=== PATIENT | female | born 1940 | race Hispanic/Latino ===

== ENCOUNTER 2017-02-24 03:23 | Emergency (ER) | payer MEDICARE ==
[2017-02-24 04:09] LABS: Basophils % (Auto) 1.3 % (0.0-1.8); Eosinophils % (Auto) 3.5 % (0.0-4.3); Hematocrit 36.7 % (30.3-42.9); Hemoglobin 12.2 gm/dl (10.1-14.3); Mean Corpuscular HGB Conc 33 % (30-34); Mean Corpuscular Hemoglobin 28 pg (28-32); Mean Corpuscular Volume 85 fl (79-97); Platelet Count 186 K/mm3 (140-440); Red Blood Count 4.32 M/mm3 (3.65-5.03); Red Cell Distribution Width 14.2 % (13.2-15.2); White Blood Count 5.5 K/mm3 (4.5-11.0)
[2017-02-24 04:28] LABS: Anion Gap 18 mmol/L; Blood Urea Nitrogen 10 mg/dL (7-17); Carbon Dioxide 25 mmol/L (22-30); Chloride 99.6 mmol/L (98-107); Glucose 108 mg/dL (65-100); Sodium 139 mmol/L (137-145)
--- NOTE | 2017-02-24 07:04 | Emergency Department Report ---
ED Dizziness HPI - General Chief Complaint: Dizziness Stated Complaint: DIZZINESS Time Seen by Provider: 02/24/17 06:53 Source: patient, family Mode of arrival: Wheelchair Limitations: No Limitations - History of Present Illness Initial Comments: 76-year-old female presents to the emergency department complaining of dizziness and near syncope. Patient states symptoms began earlier this morning. She has not lost consciousness. Patient states that she restarted her risperidone and citalopram yesterday. At this time, the patient states she feels better. There are no other complaints. MD Complaint: dizziness, near syncope -: Gradual, During the night Timing: gradual onset Description: lightheadedness, near-syncope History of Same: No History of Trauma: No Severity: moderate Improves With: rest Worsens With: nothing Associated Symptoms: denies other symptoms - Related Data Home Medications Medication Instructions Recorded Confirmed Last Taken Citalopram [celeXA] 20 mg PO QDAY 02/24/17 02/24/17 Unknown risperiDONE [RisperDAL] 1 mg PO QDAY 02/24/17 02/24/17 02/23/17 1mg Allergies Allergy/AdvReac Type Severity Reaction Status Date / Time No Known Allergies Allergy Unverified 02/24/17 03:46 ED Review of Systems ROS: Stated complaint: DIZZINESS Other details as noted in HPI Comment: All other systems reviewed and negative Cardiovascular: syncope (lightheadedness, no loss of consciousness) ED Past Medical Hx - Past Medical History Previous Medical History?: Yes Hx Psychiatric Treatment: Yes (paranoid schizophrenia) - Surgical History Past Surgical History?: No - Family History Family history: no significant - Social History Smoking Status: Never Smoker Substance Use Type: None - Medications Home Medications: Home Medications Medication Instructions Recorded Confirmed Last Taken Type Citalopram [celeXA] 20 mg PO QDAY 02/24/17 02/24/17 Unknown History risperiDONE [RisperDAL] 1 mg PO QDAY 02/24/17 02/24/17 02/23/17 History 1mg ED Physical Exam - General Limitations: No Limitations General appearance: alert, in no apparent distress - Head Head exam: Present: atraumatic, normocephalic - Eye Eye exam: Present: normal appearance, PERRL, EOMI - ENT ENT exam: Present: normal exam, normal orophraynx, mucous membranes moist - Neck Neck exam: Present: normal inspection, full ROM. Absent: tenderness - Respiratory Respiratory exam: Present: normal lung sounds bilaterally. Absent: respiratory distress - Cardiovascular Cardiovascular Exam: Present: regular rate, normal rhythm, normal heart sounds - GI/Abdominal GI/Abdominal exam: Present: soft, normal bowel sounds. Absent: distended, tenderness - Extremities Exam Extremities exam: Present: normal inspection, full ROM. Absent: tenderness - Back Exam Back exam: Present: normal inspection, full ROM. Absent: tenderness - Neurological Exam Neurological exam: Present: alert, oriented X3. Absent: motor sensory deficit - Skin Skin exam: Present: warm, dry, intact ED Course Vital Signs 02/24/17 02/24/17 02/24/17 03:35 04:00 05:00 Temperature 97.5 F L Pulse Rate 54 L 60 47 L Respiratory 18 18 18 Rate Blood Pressure 148/65 142/57 144/61 O2 Sat by Pulse 96 93 94 Oximetry 02/24/17 02/24/17 02/24/17 06:00 07:00 08:00 Temperature Pulse Rate 56 L 56 L 52 L Respiratory 18 20 14 Rate Blood Pressure 135/52 141/62 150/65 O2 Sat by Pulse 94 96 95 Oximetry 02/24/17 09:08 Temperature Pulse Rate 75 Respiratory 16 Rate Blood Pressure 138/63 O2 Sat by Pulse 95 Oximetry ED Medical Decision Making - Lab Data Result diagrams: 02/24/17 Unknown 02/24/17 Unknown - EKG Data -: EKG Interpreted by Ks EKG shows normal: sinus rhythm, axis, intervals, QRS complexes Rate: bradycardia - EKG Data When compared to previous EKG there are: no significant change Interpretation: unchanged when compared t (10/11/2012), nonspecific ST-T wave naomy - Medical Decision Making Laboratory results reviewed and discussed with the patient and family. Patient has remained asymptomatic in the emergency department. Patient is ambulated without difficulty. It is likely that her symptoms are secondary to restarting her medication. Patient will be discharged home at this time. - Differential Diagnosis medication reaction, electrolyte abnormality, occult infection Critical care attestation.: If time is entered above; I have spent that time in minutes in the direct care of this critically ill patient, excluding procedure time. ED Disposition Clinical Impression: Medication reaction, Dizziness Disposition: DISCHARGED TO HOME OR SELFCARE Is pt being admited?: No Condition: Stable Instructions: Citalopram (By mouth), Risperidone (By mouth) Referrals: PRIMARY CARE, [Primary Care Provider] - 3-5 Days Time of Disposition: 10:07
[2017-02-24 09:23] LABS: Bilirubin,Urine NEG (Negative); Blood,Urine NEG (Negative); Ketones,Urine NEG (Negative); Leukocyte Esterase,Urine NEG (Negative); Mucus,Urine FEW /HPF; Nitrite,Urine NEG (Negative); Protein,Urine <15 mg/dL mg/dL (Negative); Urobilinogen,Urine < 2.0 mg/dL (<2.0)
[2017-02-24 11:10] VITALS: BP 136/54
== END 2017-02-24 10:50 | disposition home or self-care (01) ==
LOC: ED 03:23
DX: T43.225A Adverse effect of selective serotonin reuptake inhibitors, initial encounter (principal); Y92.9 Unspecified place or not applicable; F20.9 Schizophrenia, unspecified
CPT/HCPCS: 36415; 80048; 81001; 83735; 84484; 85025; 93005; 93010; 99284

== ENCOUNTER 2019-10-01 15:34 | Inpatient (IN) | payer MEDICARE ==
--- NOTE | 2019-10-01 16:46 | Event Note ---
ED Screening Note Date of service: 10/01/19 Time: 16:34 ED Screening Note: 79 y o F presents for slurred speech x 1 month brought in by Daughter, kortney went to ENT and was told to bring her to ED for eval This initial assessment/diagnostic orders/clinical plan/treatment(s) is/are subject to change based on patients health status, clinical progression and re- assessment by fellow clinical providers in the ED. Further treatment and workup at subsequent clinical providers discretion. Patient/guardian urged not to elope from the ED as their condition may be serious if not clinically assessed and managed. Initial orders include: labs, ua, CT scan main side ecal
[2019-10-01 18:05] LABS: Hematocrit 49.3 % (30.3-42.9); Hemoglobin 15.9 gm/dl (10.1-14.3); Mean Corpuscular HGB Conc 32 % (30-34); Mean Corpuscular Volume 88 fl (79-97); Platelet Count 285 K/mm3 (140-440); Red Blood Count 5.57 M/mm3 (3.65-5.03); Red Cell Distribution Width 14.5 % (13.2-15.2)
[2019-10-01 18:21] LABS: Creatine Kinase MB 2.2 ng/mL (0.0-4.0)
[2019-10-01 18:23] LABS: INR 1.4 (0.87-1.13)
[2019-10-01 18:27] LABS: Thrombin Time 23.3 Sec. (15.1-19.6)
[2019-10-01 18:41] LABS: Partial Thromboplastin Time 67.2 Sec. (24.2-36.6)
--- NOTE | 2019-10-01 18:42 | Cat Scan Report ---
CT head/brain wo con INDICATION / CLINICAL INFORMATION: 79 years Female; Stroke symptoms. TECHNIQUE: Routine CT head without contrast. All CT scans at this location are performed using CT dos e reduction for ALARA by means of automated exposure control. COMPARISON: None. FINDINGS: BRAIN / INTRACRANIAL CONTENTS: There is moderate to cerebral white matter disease most consistent wit h microvascular angiopathy. There is mild cerebral atrophy with associated mild prominence of the mo tricular system. The motion and positioning degrade the image quality. However, there is no clear CT evidence of acute intracranial hemorrhage or significant mass effect. There is advanced cerebral atrophy, most notably involving temporal lobes including the hippocampi. ORBITS: No significant abnormality of visualized orbits. SINUSES / MASTOIDS: No significant abnormality the visualized paranasal sinuses or mastoid air cells. CRANIOCERVICAL JUNCTION: No significant abnormality. ADDITIONAL FINDINGS: None. IMPRESSION: 1. 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 Signer Name: Damien Scott MD Signed: 10/01/2019 6:37 PM Workstation Name: [id number]
--- NOTE | 2019-10-01 19:51 | Emergency Department Report ---
ED General Adult HPI - General Chief complaint: Neuro Symptoms/Deficit Stated complaint: SLURRED SPEECH Time Seen by Provider: 10/01/19 19:38 Source: patient, family, RN notes reviewed Mode of arrival: Wheelchair Limitations: Physical Limitation, Other (patient is a poor historian. History obtained from patient's daughter) - History of Present Illness Initial comments: This is a 79-year-old female. This patient is not known to this provider previously. Her primary care doctor is Dr. Dinora Ocasio History mostly obtained from patient's daughter. The patient for 1 month has been having difficulty walking, there is a reported gait and balance, she reportedly has a history of paranoid schizophrenia and is deaf, and has been having difficulty speaking and swallowing over the past month. Family initially thought the patient had a cold/upper respiratory tract infection. They were mistakenly referred to an ENT physician, who evaluated the patient, who then sent the patient here to the emergency room. The patient's daughter states that they were referred to the aforementioned ENT physician "by accident." The patient indicates that she is not having any physical pain. Symptoms are intermittent over the past month, reportedly painless, do not radiate anywhere, and as per the daughter, do not have exacerbating or relieving factors. -: week(s) Consistency: intermittent Improves with: none Worsens with: none - Related Data Home Medications Medication Instructions Recorded Confirmed Last Taken Citalopram [celeXA] 20 mg PO QDAY 02/24/17 02/24/17 Unknown risperiDONE [RisperDAL] 1 mg PO QDAY 02/24/17 02/24/17 02/23/17 1 mg Allergies Allergy/AdvReac Type Severity Reaction Status Date / Time No Known Allergies Allergy Verified 10/01/19 15:43 ED Review of Systems ROS: Stated complaint: SLURRED SPEECH Other details as noted in HPI Constitutional: denies: fever Eyes: denies: eye discharge ENT: denies: congestion Respiratory: denies: wheezing Cardiovascular: denies: syncope Gastrointestinal: other (dysphasia). denies: nausea, vomiting Genitourinary: denies: dysuria Musculoskeletal: arthralgia (chronic) Skin: lesions (scratching lesions on back) Neurological: abnormal gait, other ED Past Medical Hx - Past Medical History Previous Medical History?: Yes Hx Psychiatric Treatment: Yes (paranoid schizophrenia) Additional medical history: DEAF - Surgical History Past Surgical History?: Yes Additional Surgical History: Hysterectomy - Social History Smoking Status: Never Smoker Substance Use Type: None - Medications Home Medications: Home Medications Medication Instructions Recorded Confirmed Last Taken Type Citalopram [celeXA] 20 mg PO QDAY 02/24/17 02/24/17 Unknown History risperiDONE [RisperDAL] 1 mg PO QDAY 02/24/17 02/24/17 02/23/17 History 1 mg ED Physical Exam - General Limitations: Altered Mental Status, Other (the patient is a poor historian) General appearance: alert, in no apparent distress - Head Head exam: Present: atraumatic, normocephalic - Eye Eye exam: Present: normal appearance (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 The right eye does not cross midline. Left-sided extraocular movements are intact. Right-sided ocular elevation, depression, abduction intact. Daughter reports that right eye extraocular movements aren't baseline) - ENT ENT exam: Present: mucous membranes dry, normal external ear exam - Neck Neck exam: Present: normal inspection, full ROM. Absent: tenderness, meningismus - Respiratory Respiratory exam: Present: normal lung sounds bilaterally. Absent: respiratory distress - Cardiovascular Cardiovascular Exam: Present: regular rate, normal rhythm. Absent: systolic murmur, diastolic murmur, rubs, gallop - GI/Abdominal GI/Abdominal exam: Present: soft. Absent: distended, tenderness, guarding, rebound, rigid, pulsatile mass - Extremities Exam Extremities exam: Present: normal inspection, full ROM, other (2+ pulses noted in the bilateral upper, lower extremities. There is no long bone tenderness. Musculoskeletal compartments are soft. The pelvis is stable.). Absent: pedal edema, calf tenderness - Back Exam Back exam: Present: normal inspection, full ROM. Absent: tenderness, CVA tenderness (R), CVA tenderness (L), paraspinal tenderness, vertebral tenderness - Neurological Exam Neurological exam: Present: alert (the patient is alert to name. The patient follows commands.), other (there is question facial droop. The tongue is sometimes right-sided deviated and left-sided deviated. Left-sided extraocular movements are intact. Right-sided extra ocular movements are intact, with the exception of inability to medially across the midline. 5/5 strength bilateral upper, lower extremities. Sensation is intact to light touch upper, lower extremities) - Skin Skin exam: Present: warm, dry, intact, normal color. Absent: rash ED Course Vital Signs 10/01/19 16:31 Temperature 97.4 F L Pulse Rate 102 H Respiratory 18 Rate Blood Pressure 115/66 O2 Sat by Pulse 96 Oximetry - Reevaluation(s) Reevaluation #1: 10/01/19 21:01 Differential diagnosis, including but not limited to: Pneumonia, urinary tract infection, dysphasia, subacute stroke, electrolyte derangement, medication side effect Assessment and plan: 79-year-old female brought to the hospital by family for 1 month reported unsteady gait, dysphagia, question dysarthria. Patient not a TPA candidate as symptoms present for greater than 4.5 hours. Does not require emergent endovascular imaging as symptoms present for greater than 24 hours. Screening laboratory studies pending. Swallow study, urinalysis pending at this time. Plan to admit the patient for dysphagia and stroke evaluation. The patient has a potentially emergent condition at this time, such as subacute stroke, and therefore needs further workup and evaluation as dictated by emtala Reevaluation #2: 10/01/19 21:56 Hospital physician, Dr. Atkins, has accepted the patient to the medical service ED Medical Decision Making - Lab Data Result diagrams: 10/01/19 Unknown 10/01/19 19:54 Vital Signs - 24 hr 10/01/19 16:31 Temperature 97.4 F L Pulse Rate 102 H Respiratory 18 Rate Blood Pressure 115/66 O2 Sat by Pulse 96 Oximetry Lab Results 10/01/19 10/01/19 10/01/19 Range/Units 19:54 Unknown Unknown WBC 12.3 H (4.5-11.0) K/mm3 RBC 5.57 H (3.65-5.03) M/mm3 Hgb 15.9 H (10.1-14.3) gm/dl Hct 49.3 H (30.3-42.9) % MCV 88 (79-97) fl MCH 29 (28-32) pg MCHC 32 (30-34) % RDW 14.5 (13.2-15.2) % Plt Count 285 (140-440) K/mm3 Lymph % (Auto) [employer] Tate % (Auto) [employer]er Eos % (Auto) [employer] Worker Baso % (Auto) [employer] Worker Lymph # [employer]er Tate # [employer] Worker Eos # [employer] Worker Baso # [employer] Worker Seg Neutrophils % [employer] Worker Seg Neutrophils # [employer] Worker PT 12.4 17.0 H (12.2-14.9) Sec. INR 0.93 1.40 H (0.87-1.13) APTT 26.9 67.2 H* (24.2-36.6) Sec. Thrombin Time 23.3 H (15.1-19.6) Sec. Total Creatine Kinase (30-135) units/L CK-MB (CK-2) (0.0-4.0) ng/mL CK-MB (CK-2) Rel Index (0-4) Troponin T (0.00-0.029) ng/mL 10/01/19 Range/Units Unknown WBC (4.5-11.0) K/mm3 RBC (3.65-5.03) M/mm3 Hgb (10.1-14.3) gm/dl Hct (30.3-42.9) % MCV (79-97) fl MCH (28-32) pg MCHC (30-34) % RDW (13.2-15.2) % Plt Count (140-440) K/mm3 Lymph % (Auto) Tate % (Auto) Eos % (Auto) Baso % (Auto) Lymph # Tate # Eos # Baso # Seg Neutrophils % Seg Neutrophils # PT (12.2-14.9) Sec. INR (0.87-1.13) APTT (24.2-36.6) Sec. Thrombin Time (15.1-19.6) Sec. Total Creatine Kinase 32 (30-135) units/L CK-MB (CK-2) 2.2 (0.0-4.0) ng/mL CK-MB (CK-2) Rel Index 6.8 H (0-4) Troponin T < 0.010 (0.00-0.029) ng/mL - EKG Data -: EKG Interpreted by Me EKG shows normal: sinus rhythm Rate: normal - EKG Data 10/01/19 20:59 The EKG shows a sinus rhythm, 80 beats for minute, normal axis, QTC is 443 ms, there is left ventricular hypertrophy, there is low voltage with no ST elevation myocardial infarction. The EKG appears to be unchanged from prior EKG from January 2017. - Radiology Data Radiology results: report reviewed, image reviewed Print Report Referring Physician: DAMIEN MI Patient Name: ANI CONTRERAS Date of : 1940 Sex: Female Report Date: 2019-10-01 Report Status: Finalized Findings [address] [address] XRay Report Signed Patient: ANI CONTRERAS MR#: [id number] : 1940 Acct:[id number] Age/Sex: 79 / F ADM Date: 10/01/19 Loc: ED Attending Dr: Ordering Physician: DAMIEN MI MD Date of Service: 10/01/19 Procedure(s): XR chest 1V ap Accession Number(s): [id number] cc: DAMIEN MI MD Fluoro Time In Minutes: CHEST 1 VIEW 8:16 PM INDICATION / CLINICAL INFORMATION: Upper respiratory infection for one month. Dysphasia. COMPARISON: None available. FINDINGS: SUPPORT DEVICES: None. HEART / MEDIASTINUM: The heart size and pulmonary vasculature are normal. The aorta is normal in caliber. LUNGS / PLEURA: There is mild parenchymal opacity in the right lung base. No pneumothorax. ADDITIONAL FINDINGS: No significant additional findings. IMPRESSION: Mild parenchymal opacity in the right lung base may be related to pneumonia or atelectasis. Short-term follow-up is recommended. Signer Name: Casey Pryor MD Signed: 10/01/2019 8:39 PM Workstation Name: [id number] Transcribed By: RT Dictated By: Casey Pryor MD Electronically Authenticated By: Casey Pryor MD Signed Date/Time: 10/01/192038 DD/ 36 Print Report Referring Physician: STEPHANIE SPRAGUE Patient Name: ANI CONTRERAS Date of : 1940 Sex: Female Report Date: 2019-10-01 Report Status: Finalized Findings [address] [address] Cat Scan Report Signed Patient: ANI CONTRERAS MR#: [id number] : 1940 Acct:[id number] Age/Sex: 79 / F ADM Date: 10/01/19 Loc: ED Attending Dr: Ordering Physician: IVÁN GARCIA Date of Service: 10/01/19 Procedure(s): CT head/brain wo con Accession Number(s): [id number] cc: IVÁN GARCIA CT head/brain wo con INDICATION / CLINICAL INFORMATION: 79 years Female; Stroke symptoms. TECHNIQUE: Routine CT head without contrast. All CT scans at this location are performed using CT dose reduction for ALARA by means of automated exposure control. COMPARISON: None. FINDINGS: BRAIN / INTRACRANIAL CONTENTS: There is moderate to cerebral white matter disease most consistent with microvascular angiopathy. There is mild cerebral atrophy with associated mild prominence of the ventricular system. The motion and positioning degrade the image quality. However, there is no clear CT evidence of acute intracranial hemorrhage or significant mass effect. There is advanced cerebral atrophy, most notably involving temporal lobes including the hippocampi. ORBITS: No s ignificant abnormality of visualized orbits. SINUSES / MASTOIDS: No significant abnormality the visualized paranasal sinuses or mastoid air cells. CRANIOCERVICAL JUNCTION: No significant abnormality. ADDITIONAL FINDINGS: None. IMPRESSION: 1. 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 Signer Name: Damien Scott MD Signed: 10/01/2019 6:37 PM Workstation Name: [id number] Transcribed By: MR Dictated By: Damien Scott MD Electronically Authenticated By: Damien Scott MD Signed Date/Time: 10/01/19 5974 Critical care attestation.: If time is entered above; I have spent that time in minutes in the direct care of this critically ill patient, excluding procedure time. ED Disposition Clinical Impression: Speech disturbance, Swallowing disorder, Unsteady gait Disposition: - OP ADMIT IP TO THIS HOSP Is pt being admited?: Yes Does the pt Need Aspirin: Yes Condition: Stable Referrals: PRIMARY CARE, [Primary Care Provider] - 3-5 Days
[2019-10-01 20:34] LABS: INR 0.93 (0.87-1.13); Partial Thromboplastin Time 26.9 Sec. (24.2-36.6)
--- NOTE | 2019-10-01 20:44 | XRay Report ---
CHEST 1 VIEW 8:16 PM INDICATION / CLINICAL INFORMATION: Upper respiratory infection for one month. Dysphasia. COMPARISON: None available. FINDINGS: SUPPORT DEVICES: None. HEART / MEDIASTINUM: The heart size and pulmonary vasculature are normal. The aorta is normal in [place]. LUNGS / PLEURA: There is mild parenchymal opacity in the right lung base. No pneumothorax. ADDITIONAL FINDINGS: No significant additional findings. IMPRESSION: Mild parenchymal opacity in the right lung base may be related to pneumonia or atelectasi s. Short-term follow-up is recommended. Signer Name: Casey Pryor MD Signed: 10/01/2019 8:39 PM Workstation Name: [id number]
[2019-10-01 21:02] LABS: Alanine Aminotransferase 10 units/L (7-56); BUN/Creatinine Ratio 35; Blood Urea Nitrogen 21 mg/dL (7-17); Calcium 9.9 mg/dL (8.4-10.2); Hemolysis Index 8
[2019-10-01] MEDS ORDERED: ASPIRIN 81 MG TAB CHEW PO ONE (21:03)
[2019-10-01] MEDS ORDERED: SODIUM CHLORIDE 0.9% 250ML 250 ML IV ONE (21:03)
[2019-10-01] MEDS ORDERED: ACETAMINOPHEN 325 MG TAB PO PRN (22:08)
[2019-10-01] MEDS ORDERED: ONDANSETRON 4 MG/2 ML INJ IV PRN (22:08)
[2019-10-01] MEDS ORDERED: MAGNESIUM HYDROXIDE (MOM) ORAL LIQD UDC PO PRN (22:08)
--- NOTE | 2019-10-01 22:15 | History and Physical Report ---
History of Present Illness Date of examination: 10/01/19 History of present illness: 79 year old woman with history of schizophrenia, deaf in the right ear, decrease hearing in the left, was sent to the ER by her ENT because family states she had difficulty speaking for 1 month. They also states that her balance is off, she has a cough productive of green phlegm and decrease oral intake. Family states she cokes when she eats solid food. A review of system is difficult to obtain PAST MEDICAL HISTORY:schizophrenia, deaf in the right ear, decrease hearing in the left PAST SURGICAL HISTORY: Hysterectomy FAMILY HISTORY:hypertension, diabetes SOCIAL HISTORY: No tobacco, drugs, alcohol Medications and Allergies Allergies Allergy/AdvReac Type Severity Reaction Status Date / Time No Known Allergies Allergy Verified 10/01/19 15:43 Home Medications Medication Instructions Recorded Confirmed Last Taken Type Citalopram [celeXA] 20 mg PO QDAY 02/24/17 10/01/19 09/30/19 History risperiDONE [RisperDAL] 1 mg PO QDAY 02/24/17 10/01/19 1 Day Ago History ~09/30/19 Exam - Physical Exam Narrative exam: General Apperance: The patient sitting in bed no acute distress HEENT: Normocephalic, atraumatic. Pupils equally round and reactive to light, extraocular movement intact, and no sclericterus or JVD or thyromegaly or nodule. Neck supple, no carotid bruit, mucous membranes moist, no exudate or erythema Heart: S1-S2, regular is rhythm Lungs: decrease breath sounds at bases bilaterally, breathing comfortable Abdomen: Positive bowel sounds, soft, nontender, nondistended, no organomegaly Extremities: no edema, no cyanosis clubbing Skin: no rash, nodule, warm and dry Neuro:difficult to assess, pt refuse to talk, unable to assess speech - Constitutional Vitals: Temp Pulse Resp BP Pulse Ox 97.4 F L 102 H 18 115/66 96 10/01/19 16:31 10/01/19 16:31 10/01/19 16:31 10/01/19 16:31 10/01/19 16:31 Results - Labs CBC & Chem 7: 10/01/19 Unknown 10/01/19 19:54 Labs: Abnormal lab results 10/01/19 10/01/19 10/01/19 Range/Units 19:54 19:54 19:54 WBC (4.5-11.0) K/mm3 RBC (3.65-5.03) M/mm3 Hgb (10.1-14.3) gm/dl Hct (30.3-42.9) % PT (12.2-14.9) Sec. INR (0.87-1.13) APTT (24.2-36.6) Sec. Thrombin Time (15.1-19.6) Sec. Sodium 135 L (137-145) mmol/L Chloride 97.9 L (98-107) mmol/L BUN 21 H (7-17) mg/dL Creatinine 0.6 L (0.7-1.2) mg/dL Glucose 105 H (65-100) mg/dL CK-MB (CK-2) Rel Index (0-4) Salicylates < 0.3 L (2.8-20.0) mg/dL Acetaminophen < 5.0 L (10.0-30.0) ug/mL 10/01/19 10/01/19 10/01/19 Range/Units Unknown Unknown Unknown WBC 12.3 H (4.5-11.0) K/mm3 RBC 5.57 H (3.65-5.03) M/mm3 Hgb 15.9 H (10.1-14.3) gm/dl Hct 49.3 H (30.3-42.9) % PT 17.0 H (12.2-14.9) Sec. INR 1.40 H (0.87-1.13) APTT 67.2 H* (24.2-36.6) Sec. Thrombin Time 23.3 H (15.1-19.6) Sec. Sodium (137-145) mmol/L Chloride (98-107) mmol/L BUN (7-17) mg/dL Creatinine (0.7-1.2) mg/dL Glucose (65-100) mg/dL CK-MB (CK-2) Rel Index 6.8 H (0-4) Salicylates (2.8-20.0) mg/dL Acetaminophen (10.0-30.0) ug/mL - Imaging and Cardiology EKG: image reviewed Chest x-ray: report reviewed CT Scan - head: report reviewed Assessment and Plan Assessment slurred speech, r/o CVA Schizophrenia Pneumonia vs Bronchitis Plan Admit to medicine Obtain MR head, echo, carotid doppler Do neuro checks, swallow screen Consult neurology, PT/OT Start aspirin, hold statin Hold all oral medications until evualuated by sppech Start levaquin, follow blood cultures DVT prophalaxis
[2019-10-02 06:19] LABS: Chol/HDL Ratio 1.98 %
[2019-10-02] MEDS: SODIUM CHLORIDE 0.9% 1000 ML 1,000 ML IV SCH (06:19)
[2019-10-02] MEDS ORDERED: ASPIRIN 325 MG TAB PO SCH ×2 (10:00)
--- NOTE | 2019-10-02 11:25 | Magnetic Resonance Report ---
MRI BRAIN 10/02/2019 INDICATION / CLINICAL INFORMATION: stroke, difficulty speaking PATIENT MOTION, BEST POSSIBLE EXAM. PATIENT HAS UNCONTROLLABE MOVEMENT OF MOUTH AND HEAD.. TECHNIQUE: Multiplanar, multisequence MR images of the brain were obtained. COMPARISON: CT brain 10/01/2019 FINDINGS: BRAIN / INTRACRANIAL CONTENTS: Unenhanced MR images of the brain were obtained. There is significant patient motion artifact present on all of these images. There is no definitive evidence of acute abnormality. There is no evidence of cortical restricted dif fusion or signal change. There is some signal inhomogeneity present in the lower sandra on one of the diffusion-weighted sequenc es but not the other, indicating likely artifact. There is no evidence of mass or hemorrhage. Underlying prominent diffuse cerebral atrophy and mild ch ronic white matter T2 weighted hyperintensities are noted. EXTRACRANIAL: Unremarkable CRANIOCERVICAL JUNCTION: No significant abnormality. VASCULAR FLOW-VOIDS: No significant abnormality. IMPRESSION: Limited exam due to patient motion artifact. No definite evidence of acute abnormality. Signer Name: Mayco Monae MD Signed: 10/02/2019 11:20 AM Workstation Name: [id number]
--- NOTE | 2019-10-02 11:33 | Vascular Lab Report ---
BILATERAL CAROTID DOPPLER ULTRASOUND INDICATION : stroke TECHNIQUE: Grayscale and color Doppler imaging performed through the neck. COMPARISON: None FINDINGS: Right: There is minimal calcific plaques in the carotid bulb. Peak systolic velocity in the CCA is 60 cm/s with end-diastolic velocity of 9 cm/s. Peak systolic velocity in the proximal ICA is extremel y 2 cm/s with end-diastolic velocity of 16 cm/s. ICA to CCA ratio is less than 2. There is antegrade flow in the ECA and the vertebral artery. Left: There is mild calcific plaques in the carotid bulb. Peak systolic velocity in the CCA is 73 cm/ s with end-diastolic velocity of 8 cm/s. Peak systolic velocity in the proximal ICA is 78 cm/s with e nd-diastolic velocity of 27 cm/s. ICA to CCA ratio is less than 2. There is antegrade flow in the EC A and the vertebral artery. IMPRESSION: No hemodynamically significant stenosis by NASCET criteria. Signer Name: Gokul Holguin Jr, MD Signed: 10/02/2019 11:28 AM Workstation Name: [id number]
--- NOTE | 2019-10-02 12:31 | XRay Report ---
CHEST 2 VIEWS INDICATION: RLL pneumonia. COMPARISON: 10/01/2019 FINDINGS: Support devices: None. Heart: Within normal limits. Lungs/pleura: Mild emphysematous changes are suspected. There is platelike atelectasis at the right lung base but no evidence for infiltrate. The lungs are generally clear. No pleural effusion or pneum othorax. Additional findings: The bony structures are demineralized. Mild thoracic spondylosis. No obvious acu te fracture. IMPRESSION: COPD. Discoid atelectasis at the right lung base. No evidence for pneumonia. Signer Name: Gokul Holguin Jr, MD Signed: 10/02/2019 12:26 PM Workstation Name: [id number]
[2019-10-02] MEDS: ASPIRIN 300 MG RECT SUPP PR SCH (16:22)
[2019-10-02] MEDS: ENOXAPARIN 40 MG/0.4 ML INJ SUB-Q SCH (16:22)
--- NOTE | 2019-10-02 16:40 | Progress Note ---
Assessment and Plan Assessment and plan: Patient is a 79 year old woman with history of schizophrenia, deaf in the right ear, decrease hearing in the left, was sent to the ER by her ENT because family states she had difficulty speaking for 1 month. They also states that her balance is off, she has a cough productive of green phlegm and decrease oral intake. Family states she cokes when she eats solid food. pCXR unable to distingish between RLL atelectasis vs PNA. Brain MRI negative for acute stroke, US carotid doppler unremarkable, TTE unremarkable. Slurred speech, ruled out acute CVA, most likely Tardive Dyskinesia: stop Risperdal, asked daughter at bedside to notifty Dr. Shearer., consult Mental health Schizophrenia: consult Mental health Pneumonia vs Bronchitis: get 2 view CXR, empirically treat History Interval history: Patient was seen and examined. Follow-up on current diagnosis of Slurred speech, FTT. No overnight events reported to me. Patient denies any chest pain, shortness breath, nausea/vomiting or severe headaches. Imaging, nursing note, chart, labs and old chart reviewed. Discussed with patient. Hospitalist Physical - Physical exam Narrative exam: Gen: cachetic NAD, Awake, Alert, Orientated x 1 HEENT: NCAT, EOMI, PERRL, OP tongue rolling, lip smacking Neck: supple, no adenopathy, no thyromegaly, no JVD CVS/Heart: RRR, normal S1S2, pulses present bilaterally Chest/Lungs: CTA B, Symmetrical chest expansion, good air entry bilaterally GI/Abdomen: soft, NTND, good bowel sounds, no guarding or rebound /Bladder: no suprapubic tenderness, no CVA or paraspinal tenderness Extermity/Skin: no c/c/e, no obvious rash MSK: FROM x 4 Neuro: CN 2-12 grossly intact, no new focal deficits Psych: calm but confused - Constitutional Vitals: Temp Pulse Resp BP Pulse Ox 97.5 F L 73 16 145/70 98 10/02/19 07:30 10/02/19 07:30 10/02/19 07:30 10/02/19 07:30 10/02/19 07:30 Results - Labs CBC & Chem 7: 10/01/19 Unknown 10/01/19 19:54 Labs: Laboratory Last Values WBC 12.3 K/mm3 (4.5-11.0) H 10/01/19 Unknown RBC 5.57 M/mm3 (3.65-5.03) H 10/01/19 Unknown Hgb 15.9 gm/dl (10.1-14.3) H 10/01/19 Unknown Hct 49.3 % (30.3-42.9) H 10/01/19 Unknown MCV 88 fl (79-97) 10/01/19 Unknown MCH 29 pg (28-32) 10/01/19 Unknown MCHC 32 % (30-34) 10/01/19 Unknown RDW 14.5 % (13.2-15.2) 10/01/19 Unknown Plt Count 285 K/mm3 (140-440) 10/01/19 Unknown Lymph % (Auto) [employer] 10/01/19 Unknown [place] % (Auto) [employer] 10/01/19 Unknown Eos % (Auto) [employer] 10/01/19 Unknown Baso % (Auto) [employer] 10/01/19 Unknown Lymph # [employer] 10/01/19 Unknown [place] # [employer] 10/01/19 Unknown Eos # [employer] 10/01/19 Unknown Baso # [employer] 10/01/19 Unknown Seg Neutrophils % [employer] 10/01/19 Unknown Seg Neutrophils # [employer] 10/01/19 Unknown PT 17.0 Sec. (12.2-14.9) H 10/01/19 Unknown INR 1.40 (0.87-1.13) H 10/01/19 Unknown APTT 67.2 Sec. (24.2-36.6) H* 10/01/19 Unknown Thrombin Time 23.3 Sec. (15.1-19.6) H 10/01/19 Unknown Sodium 135 mmol/L (137-145) L 10/01/19 19:54 Potassium 4.2 mmol/L (3.6-5.0) 10/01/19 19:54 Chloride 97.9 mmol/L (98-107) L 10/01/19 19:54 Carbon Dioxide 25 mmol/L (22-30) 10/01/19 19:54 Anion Gap 16 mmol/L 10/01/19 19:54 BUN 21 mg/dL (7-17) H 10/01/19 19:54 Creatinine 0.6 mg/dL (0.7-1.2) L 10/01/19 19:54 Estimated GFR > 60 ml/min 10/01/19 19:54 BUN/Creatinine Ratio 35 % 10/01/19 19:54 Glucose 105 mg/dL (65-100) H 10/01/19 19:54 Calcium 9.9 mg/dL (8.4-10.2) 10/01/19 19:54 Magnesium 2.10 mg/dL (1.7-2.3) 10/01/19 19:54 Total Bilirubin 0.50 mg/dL (0.1-1.2) 10/01/19 19:54 AST 17 units/L (5-40) 10/01/19 19:54 ALT 10 units/L (7-56) 10/01/19 19:54 Alkaline Phosphatase 63 units/L (35-129) 10/01/19 19:54 Total Creatine Kinase 32 units/L (30-135) 10/01/19 Unknown CK-MB (CK-2) 2.2 ng/mL (0.0-4.0) 10/01/19 Unknown CK-MB (CK-2) Rel Index 6.8 (0-4) H 10/01/19 Unknown Troponin T < 0.010 ng/mL (0.00-0.029) 10/01/19 Unknown Total Protein 7.0 g/dL (6.3-8.2) 10/01/19 19:54 Albumin 4.0 g/dL (3.9-5) 10/01/19 19:54 Albumin/Globulin Ratio 1.3 % 10/01/19 19:54 Triglycerides 67 mg/dL (2-149) 10/02/19 04:40 Cholesterol 107 mg/dL (50-199) 10/02/19 04:40 LDL Cholesterol Direct 46 mg/dL (50-130) L 10/02/19 04:40 HDL Cholesterol 54 mg/dL (40-59) 10/02/19 04:40 Cholesterol/HDL Ratio 1.98 % 10/02/19 04:40 TSH 0.397 mlU/mL (0.270-4.200) 10/01/19 19:54 Salicylates < 0.3 mg/dL (2.8-20.0) L 10/01/19 19:54 Acetaminophen < 5.0 ug/mL (10.0-30.0) L 10/01/19 19:54 Active Medications - Current Medications Current Medications: Generic Name Dose Route Start Last Admin Trade Name Freq PRN Reason Stop Dose Admin Aspirin 300 mg 10/02/19 10:00 10/02/19 16:22 Aspirin NM 300 mg DAILY [facility] Administration Bisacodyl 10 mg 10/01/19 22:08 Dulcolax NM QDAY PRN Constipation Enoxaparin Sodium 40 mg 10/02/19 10:00 10/02/19 16:22 Enoxaparin SUB-Q 40 mg QDAY [facility] Administration Sodium Chloride 1,000 mls @ 75 mls/hr 10/01/19 23:45 10/02/19 06:19 Nacl 0.9% 1000 Ml IV 75 mls/hr DIRECT [facility] Administration Ondansetron HCl 4 mg 10/01/19 22:08 Zofran IV Q8H PRN Nausea And Vomiting Sodium Chloride 10 ml 10/01/19 22:08 Sodium Chloride Flush Syringe 10 Ml IV PRN PRN LINE FLUSH Nutrition/Malnutrition Assess - Dietary Evaluation Nutrition/Malnutrition Findings: Nutrition Notes Start: 10/02/19 10:26 Freq: Status: Active Protocol: Document 10/02/19 10:26 JUAN (Rec: 10/02/19 14:14 JUAN [id number]) Co-Sign 10/02/19 10:26 Nutrition Notes Need for Assessment generated from: MD Order Initial or Follow up Assessment Other Pertinent Diagnosis Schizo, TUOLUMNE, wounds on back and thigh Current Diet No Diet Labs/Tests 10/01/2019 Na 135 BUN 21 Cr 0.6 Pertinent Medications Reviewed Height 5 ft Weight 49.3 kg [place] Body Weight (kg) 45.45 BMI 21.2 Subjective/Other Information MD consult for malnutrition and ONS Upon arrival pt was unable to discuss nutrition hx d/t AMS. Pt daughter was present and stated her mother had a flucuating appetitie and intake. Pt was drinknig ONS upon arrival and had consumed 50%. Pt has difficulty chewing whole foods. NFPE conducted and noticed severe muscle wasting and mild fat depletion . Burn Absent Trauma Absent GI Symptoms None Minimum of two criteria Yes Energy Intake (severe) < or equal to 50% Estimated Energy Requirement > or equal to 5 days Body Fat Depletion Mild depletion (non-severe) Muscle Mass Moderate Depletion (severe) #1 Nutrition Diagnosis Malnutrition Etiology decreased oral intake, AMS As Evidenced by Signs and Symptoms muscle and fat depletion, <50% of meals consumed for <5 days Is patient on ventilator? No Is Patient Ambulatory and/or Out of Bed No REE-([facility]-confined to bed) 1086.204 Kcal/Kg value to use for calculation 31 Approximate Energy Requirements Using 1528 kcal/Kg Calculation Used for Recommendations Kcal/kg Additional Notes PRO needs: 50-73g (1.2-1.5 g/ kg) Fluid needs: 1ml/kcal Nutrition Intervention Change Diet Order: Advance Diet to Mechanical Soft when Medically Able Add Supplement/Snack (indicate name/kcal Ensure Enlive BID /protein ) Provides kCal: 700 Provides Protein (gm) 40 Goal #1 Advance Diet to Mechanical Soft when Medically Able Anticipated Discharge Needs: Unable to determine at this time Follow-Up By: 10/04/19 Additional Comments FU diet advancement/ONS intakes
--- NOTE | 2019-10-02 17:03 | Magnetic Resonance Report ---
MRA HEAD 10/02/2019 INDICATION / CLINICAL INFORMATION: possible stroke. TECHNIQUE: Routine MRA of the head is performed. 3-D/MIP reformats postprocessed. COMPARISON: None available. FINDINGS: MRA HEAD: Intracranial internal carotid arteries: No significant abnormality. Anterior cerebral arteries: No significant abnormality. Middle cerebral arteries: No significant abnormality. Intracranial vertebral arteries: No significant abnormality. Basilar artery: No significant abnormality. Posterior cerebral arteries: No significant abnormality. IMPRESSION: No significant abnormality. Signer Name: Mayco Monae MD Signed: 10/02/2019 4:58 PM Workstation Name: [id number]
--- NOTE | 2019-10-02 17:11 | Magnetic Resonance Report ---
MRA NECK 10/02/2019 INDICATION / CLINICAL INFORMATION: possible stroke. TECHNIQUE: Routine MRA of the neck are performed. 3-D/MIP reformats postprocessed. Percentage stenosis is deter mined by direct quantitative measurements of distal internal carotid artery diameter compared with no rmal reference segments or by criteria similar to NASCET where applicable. COMPARISON: None available. FINDINGS: Unenhanced MR angiographic images of the neck were obtained. 3D/MIP reformats were post-processed. Image quality is limited due to patient motion artifact on these noncontrast images. There is no peter s evidence of carotid bifurcation stenosis, although motion artifact limits overall reliability. Good flow signal seen in the vertebral arteries. IMPRESSION: No definite evidence of carotid bifurcation stenosis. Depending on details of the clinical circumsta nces, consider further evaluation with contrast-enhanced MR angiography, CT angiography, or ultrasoun d. Signer Name: Mayco Monae MD Signed: 10/02/2019 5:06 PM Workstation Name: [id number]
[2019-10-02 18:06] LABS: Bilirubin,Urine NEG (Negative); Blood,Urine NEG (Negative); Calcium Oxalate Crystals,Urine 2+; Color,Urine Amber (Yellow); Protein,Urine <15 mg/dL mg/dL (Negative)
--- NOTE | 2019-10-02 18:34 | Consultation ---
History of Present Illness Consult date: 10/09/19 Reason for Consult: Slurred speech Chief complaint: Slurred speech History of present illness: Patient is a 79 y/o woman w/ a h/o schizophrenia, deafness. Her daughter at bedside reports that the patient had onset of slurred speech and gait imbalance, which started about 1 month ago. Prior to that, patient was able to speak normally. She has had persistence of her symptoms over the past month, and her daughter does not note any progression of symptoms. Daughter states that at baseline, patient has cognitive deficits related to schizophrenia, and does not usually know the year or month. Patient has had falls over the past month, related to gait imbalance. Patient has also has some difficulty swallowing over the last month . Past History Past Medical History: other (Schizophrenia) Social history: lives with family Family history: no significant family history Medications and Allergies Allergies Allergy/AdvReac Type Severity Reaction Status Date / Time No Known Allergies Allergy Verified 10/01/19 15:43 Home Medications Medication Instructions Recorded Confirmed Last Taken Type Citalopram [celeXA] 20 mg PO QDAY 02/24/17 10/01/19 09/30/19 History risperiDONE [RisperDAL] 1 mg PO QDAY 02/24/17 10/01/19 1 Day Ago History ~09/30/19 Active Meds: Active Medications Aspirin (Aspirin) 300 mg [place] DAILY [facility] Last Admin: 10/02/19 16:22 Dose: 300 mg Documented by: Bisacodyl (Dulcolax) 10 mg [place] QDAY PRN PRN Reason: Constipation Enoxaparin Sodium (Enoxaparin) 40 mg SUB-Q QDAY [facility] Last Admin: 10/02/19 16:22 Dose: 40 mg Documented by: Sodium Chloride (Nacl 0.9% 1000 Ml) 1,000 mls @ 75 mls/hr IV DIRECT [facility] Last Admin: 10/02/19 06:19 Dose: 75 mls/hr Documented by: Ondansetron HCl (Zofran) 4 mg IV Q8H PRN PRN Reason: Nausea And Vomiting Sodium Chloride (Sodium Chloride Flush Syringe 10 Ml) 10 ml IV PRN PRN PRN Reason: LINE FLUSH Review of Systems All systems: negative Neurological: change in speech, balance difficulties Physical Examination - Vital Signs Vital Signs: Vital Signs Temp Pulse Resp BP Pulse Ox 97.4 F L 102 H 18 115/66 96 10/01/19 16:31 10/01/19 16:31 10/01/19 16:31 10/01/19 16:31 10/01/19 16:31 - Physical Exam Narrative exam: Patient is awake, alert, oriented to self, follows two step commands. PERRL, EOMI, VFF, tongue midline, no facial weakness noted, b/l intact to LT. Decreased hearing b/l, which is baseline. Noted to have significant dysarthria. No aphasia noted. 5/5 strength in all extremities. 2+ reflexes throughout. B/l intact to FTN and HTS. B/l intact to LT. Patient noted to have imbalanced gait. - Constitutional General appearance: comfortable - EENT EENT: Present: ATNC, PERRL, mucous membranes moist, vision intact - Respiratory Respiratory: Present: lungs clear, normal breath sounds - Cardiovascular Cardiovascular: Present: regular rate, normal S1, normal S2 Extremities: Present: no clubbing, cyanosis, no inflammation - Gastrointestinal Gastrointestinal: Present: normoactive bowel sounds, soft, non-tender - Integumentary Integumentary: Present: normal - Musculoskeletal Musculoskeletal: Present: no fluid collection, no pain - Psychiatric Psychiatric: Present: mood/affect appropriate - Level of Consciousness 1a. Level of Consciousness: alert/keenly responsive - LOC Questions 1b. LOC Questions: answers no questions correctly (Baseline deficits) - LOC Command 1c. LOC Commands: performs tasks correctly - Best Gaze 2. Best Gaze: normal - Visual 3. Visual: no visual loss - Facial Palsy 4. Facial Palsy: normal symmetrical movement - Motor Arm 5a. Motor Arm Left: no drift 5b. Motor Arm Right: no drift - Motor Leg 6a. Motor Leg Left: no drift 6b. Motor Leg Right: no drift - Limb Ataxia 7. Limb Ataxia: absent - Sensory 8. Sensory: normal - Best Language 9. Best Language: no aphasia - Dysarthria 10. Dysarthria: severe dysarthria - Extinction and Inattention 11. Extinction/Inattention: no abnormality - Scoring Total Score: 4 Stroke Severity: Minor Stroke Results - Laboratory Findings CBC and BMP: 10/01/19 Unknown 10/01/19 19:54 Abnormal Lab Findings: Abnormal Labs 10/01/19 10/01/19 10/01/19 14:00 19:54 19:54 WBC RBC Hgb Hct PT INR APTT Thrombin Time Sodium 135 L Chloride 97.9 L BUN 21 H Creatinine 0.6 L Glucose 105 H CK-MB (CK-2) Rel Index LDL Cholesterol Direct Urine WBC (Auto) 8.0 H Salicylates < 0.3 L Acetaminophen 10/01/19 10/01/19 10/01/19 19:54 Unknown Unknown WBC 12.3 H RBC 5.57 H Hgb 15.9 H Hct 49.3 H PT 17.0 H INR 1.40 H APTT 67.2 H* Thrombin Time 23.3 H Sodium Chloride BUN Creatinine Glucose CK-MB (CK-2) Rel Index LDL Cholesterol Direct Urine WBC (Auto) Salicylates Acetaminophen < 5.0 L 10/01/19 10/02/19 Unknown 04:40 WBC RBC Hgb Hct PT INR APTT Thrombin Time Sodium Chloride BUN Creatinine Glucose CK-MB (CK-2) Rel Index 6.8 H LDL Cholesterol Direct 46 L Urine WBC (Auto) Salicylates Acetaminophen Assessment and Plan Patient is a 79 y/o woman w/ a h/o schizophrenia, deafness, who presents with 1 month h/o dysarthria, dysphagia, and gait imbalance. According to the patient's clinical findings, it is possible that the patient has had a subacute ischemic stroke. Plan: 1. Possible brainstem subacute stroke: - MRI brain did not reveal any acute infarct, however given timeline of symptoms of 30 days prior to admission, MRi may not show any evidence of acute infarct, and further, may not show subacute infarct in brainstem. - Alternatively, patient may have a progressive neurodegenerative disease. However, daughter states that there was an abrupt of these symptoms one month ago. Neurodegenerative diseases would likely have a slower progression of symptoms. - MRA head/neck: no significant stenosis - Echo: EF 50-55%, LA normal size, bubble study negative. - Recommend for swallow evaluation. - Cont. ASA - LDL 46, therefore patient will not need statin, as goal LDL <70. - Telemetry monitoring while in house. - DVT Ppx: recommend lovenox - Recommend for patient to follow up with neurology as outpatient in 3-4 weeks. 2. Blood pressure: - Recommend target normotension, as it has been >48 hours since symptom onset. 3. Leukocytosis: - Further workup and management per primary team. - Will sign off, as neurologic workup is complete, and treatment plan is in place. Please call with any questions. Thank you for allowing me to take part in the care of this patient. Torres Kaufman MD Neurology
[2019-10-03] MEDS: SODIUM CHLORIDE 0.9% 1000 ML 1,000 ML IV SCH (08:47)
[2019-10-03] MEDS: ASPIRIN 300 MG RECT SUPP PR SCH (11:00)
[2019-10-03] MEDS: ENOXAPARIN 40 MG/0.4 ML INJ SUB-Q SCH (11:45)
--- NOTE | 2019-10-03 13:39 | Consultation ---
History of Present Illness - Reason for Consult Consult date: 10/03/19 Reason for consult: Initial Psychiatric Evaluation - Chief Complaint Chief complaint: Patient is mute. - History of Present Psychiatric Illness Patient is a 79 year old white female that presents to the hospital due to change in orientation/slurred speech. She has a PPHx schizophrenia, paranoid type. Psychiatry was consulted for tardive dyskinesia. Today the patient is laying in the bed. She presents calm. No agitation noted. Patient is nonverbal. Notable symptoms are sticking out tongue without trying and smacking or puckering of the lip. History mostly obtained from patient's daughter, Lupe Perry. She reports that for 1 month patient has been having difficulty walking, there is a reported gait and balance, she reportedly has a history of paranoid schizophrenia and is deaf, and has been having difficulty speaking and swallowing over the past month. Family initially thought the patient had a cold/upper respiratory tract infection. Provider spoke with hospitalist. Hospitalist reports that he discontinued Risperdal. Current Psychiatric Medications: Risperdal. Daughter is unable to remember the name of other psychiatric medications. Past Psychiatric History: Schizophrenia, paranoid type (1990); 1 previous inpatient psychiatric hospitalization (1997); outpatient psychiatrist- [facility]; no previous suicide attempts. Drug/Alcohol Abuse History: Patient denies history of drug/alcohol abuse. History of Trauma/Abuse: Unable to Assess. Social History: Per daughter patient has no education; lives with 3 children; source of income- $1300; good support system. Family History of Psychiatric Illness/Substance Abuse: daughter " depression." Medications and Allergies Allergies Allergy/AdvReac Type Severity Reaction Status Date / Time No Known Allergies Allergy Verified 10/01/19 15:43 Home Medications Medication Instructions Recorded Confirmed Last Taken Type Citalopram [celeXA] 20 mg PO QDAY 02/24/17 10/01/19 09/30/19 History risperiDONE [RisperDAL] 1 mg PO QDAY 02/24/17 10/01/19 1 Day Ago History ~09/30/19 Active Meds: Active Medications Aspirin (Aspirin) 300 mg [place] DAILY [facility] Last Admin: 10/03/19 11:00 Dose: 300 mg Documented by: Bisacodyl (Dulcolax) 10 mg [place] QDAY PRN PRN Reason: Constipation Enoxaparin Sodium (Enoxaparin) 40 mg SUB-Q QDAY [facility] Last Admin: 10/03/19 11:45 Dose: 40 mg Documented by: Sodium Chloride (Nacl 0.9% 1000 Ml) 1,000 mls @ 75 mls/hr IV DIRECT [facility] Last Admin: 10/03/19 08:47 Dose: 75 mls/hr Documented by: Ondansetron HCl (Zofran) 4 mg IV Q8H PRN PRN Reason: Nausea And Vomiting Sodium Chloride (Sodium Chloride Flush Syringe 10 Ml) 10 ml IV PRN PRN PRN Reason: LINE FLUSH Mental Status Exam - Vital signs Last Vital Signs Temp 98.0 F 10/03/19 04:27 Pulse 89 10/03/19 10:00 Resp 17 10/03/19 10:00 BP 156/71 10/03/19 04:27 Pulse Ox 97 10/03/19 10:00 - Exam Narrative exam: Unable to assess patient's mental status due to condition. Results Result Diagrams: 10/01/19 Unknown 10/01/19 19:54 Abnormal lab results 10/01/19 Range/Units 14:00 Urine WBC (Auto) 8.0 H (0.0-6.0) /HPF All other labs normal. Assessment and Plan Assessment and plan: Impression: PPHx schizophrenia. Today the patient is calm. Patient is nonverbal. No agitation noted. Recommendation/Plan: 1. Will reassess in 24 hours. 2. Discontinue Risperdal. 3. Will not start an anti-psychotic until patient's condition improves. Disposition: Patient is to follow-up at the [facility]- Dr. Lou.
[2019-10-03 17:32] VITALS: BP 143/66
--- NOTE | 2019-10-03 17:57 | Discharge Summary ---
Providers - Providers Date of Admission: 10/01/19 22:08 Date of discharge: 10/03/19 Attending physician: ROMANA FITZPATRICK 10/01/19 Consult to Physician [CONS] Routine Comment: Consulting Provider: KWAME CLARK Physician Instructions: Reason For Exam: slurred speech 10/01/19 22:08 Occupational Therapy Evaluate and Treat [CONS] Routine Comment: Reason For Exam: Neuro deficits Physical Therapy Evaluation and Treat [CONS] Routine Comment: Reason For Exam: Neuro deficits 10/02/19 02:23 Consult to Dietitian/Nutrition [CONS] Routine Physician Instructions: Reason For Exam: Reason for Consult: Malnutrition 10/02/19 16:41 Consult to Mental Health [CONS] Urgent Reason For Exam: Evaluate and Manage for Tardive Dyskinesia 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 They also states that her balance is off, she has a cough productive of green phlegm and decrease oral intake. Family states she cokes when she eats solid food. pCXR unable to distinguish between RLL atelectasis vs PNA. Brain MRI negative for acute stroke, US carotid doppler unremarkable, TTE unremarkable. 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 Shearer., consult Mental health Schizophrenia: consult Mental health Bronchitis: treat Disposition: DC-01 TO HOME OR SELFCARE Time spent for discharge: 34 minutes Core Measure Documentation - Palliative Care Palliative Care/ Comfort Measures: Not Applicable - Core Measures Any of the following diagnoses?: none - VTE Discharge Requirements Deep Vein Thrombosis/Pulmonary Embolism Present on Admission: No Has pt received <5 days of overlap therapy or INR<2.0: No Anticoagulant overlap therapy prescribed at discharge: No Contraindication No Overlap Therapy order at DC: Not Indicated Exam - Physical Exam Narrative exam: Gen: cachetic NAD, Awake, Alert, Orientated x 1 HEENT: NCAT, EOMI, PERRL, OP tongue rolling, lip smacking Neck: supple, no adenopathy, no thyromegaly, no JVD CVS/Heart: RRR, normal S1S2, pulses present bilaterally Chest/Lungs: CTA B, Symmetrical chest expansion, good air entry bilaterally GI/Abdomen: soft, NTND, good bowel sounds, no guarding or rebound /Bladder: no suprapubic tenderness, no CVA or paraspinal tenderness Extermity/Skin: no c/c/e, no obvious rash MSK: FROM x 4 Neuro: CN 2-12 grossly intact, no new focal deficits Psych: calm but confused - Constitutional Vitals: Temp Pulse Resp BP Pulse Ox 98.2 F 70 18 143/66 94 10/03/19 16:57 10/03/19 16:57 10/03/19 16:57 10/03/19 16:57 10/03/19 16:57 Plan Activity: other (no strenous activity until cleared by PCP) Diet: advance as tolerated Special Instructions: record daily BP diary Follow up with: PRIMARY MD TUCKER [Primary Care Provider] - 3-5 Days CONCEPCION WILLIAM MD [Staff Physician] - 7 Days Prescriptions: Aspirin [Aspirin BABY CHEW TAB] 81 mg PO QDAY #30 tab.chew
== END 2019-10-03 19:50 | disposition home health service (06) | DRG 92 ==
LOC: ED 15:34 → 4A 22:08
PROVIDERS: ADMIT Internal Medicine; ATTEND Internal Medicine
DX: G24.01 Drug induced subacute dyskinesia (principal); R65.10 Systemic inflammatory response syndrome (SIRS) of non-infectious origin without acute organ dysfunction; J98.11 Atelectasis; E44.1 Mild protein-calorie malnutrition; R47.9 Unspecified speech disturbances; R13.10 Dysphagia, unspecified; J40 Bronchitis, not specified as acute or chronic; R26.81 Unsteadiness on feet; D72.829 Elevated white blood cell count, unspecified; F20.9 Schizophrenia, unspecified; T43.595A Adverse effect of other antipsychotics and neuroleptics, initial encounter; Y92.89 Other specified places as the place of occurrence of the external cause; Z79.899 Other long term (current) drug therapy; Z90.710 Acquired absence of both cervix and uterus; Z82.49 Family history of ischemic heart disease and other diseases of the circulatory system; Z83.3 Family history of diabetes mellitus
CPT/HCPCS: 36415; 70450; 70544; 70547; 70551; 71045; 71046; 80053; 80061; 80320; 81001; 82550; 82553; 82607; 83735; 84443; 84484; 85025; 85610; 85670; 85730; 87086; 93005; 93010; 93306; 93880; 96360; G0378; G0480; J1650; J1956; J7030; J7050